=== PATIENT | male | born 1995 | race Caucasian/White ===

== ENCOUNTER 2017-01-29 14:39 | Emergency (ER) | payer OTHER ==
[2017-01-29 14:48] VITALS: BP 150/80; PULSE 73; TEMP 98.1; BMI 29.9
--- NOTE | 2017-01-29 16:45 | PDOC ---
History of Present Illness - General Chief Complaint: Urinary Problem Stated Complaint: BLADDER PAIN Time Seen by Provider: 01/29/17 16:07 History Source: Patient Exam Limitations: No Limitations - History of Present Illness Initial Comments: 01/29/17 16:32 Patient is a 21-year-old otherwise healthy male, uncircumcised, presents with urinary difficulty since Wednesday. Patient states that on Wednesday he went to the movies and had to urinate extremely bad however he held his urine until the end of the movie. After the movie he went to the bathroom and urinated a lot. Since he's had urinary retention, no frequency, no dysuria. Went to urgent care where they stated specimen contained blood told him to come to emergency department. No back pain. He also reports that he has not had normal morning erection since discomfort started. Past Medical History: Denies. Allergies: No known allergies Medications: None Family History: Non-contributory Social History: Denies smoking, alcohol use, or IVDU Review of Systems GENERAL/CONSTITUTIONAL: No fever or chills. No weakness. No weight change. HEAD, EYES, EARS, NOSE AND THROAT: No change in vision. No ear pain or discharge. No sore throat. CARDIOVASCULAR: No chest pain or shortness of breath. RESPIRATORY: No cough, wheezing, or hemoptysis. GASTROINTESTINAL: No nausea, vomiting, diarrhea or constipation. No rectal bleeding. GENITOURINARY: Urinary retention, No dysuria or frequency. Reports microscopic blood in urine. MUSCULOSKELETAL: No joint or muscle swelling or pain. No neck or back pain. SKIN : No rash or easy bruising. NEUROLOGIC: No headache, vertigo, loss of consciousness, or loss of sensation. PSYCHIATRIC: No depression or anxiety. ENDOCRINE: No increased thirst. No abnormal weight change. HEMATOLOGIC/LYMPHATIC: No anemia, easy bleeding, or history of blood clots. ALLERGIC/IMMUNOLOGIC: No hives or skin allergy. No latex allergy. Physical Exam: GENERAL: The patient is awake, alert, and fully oriented, in no acute distress. EYES: Pupils equal, round and reactive to light, extraocular movements intact, sclera anicteric, conjunctiva clear. ENT: Ears normal, nares patent, oropharynx clear without exudates. Moist mucous membranes. No uvula deviation NECK: Normal range of motion, supple without lymphadenopathy, JVD, or masses. LUNGS: Breath sounds equal, clear to auscultation bilaterally. No wheezes, and no crackles. HEART: Regular rate and rhythm, normal S1 and S2 without murmur, rub or gallop. ABDOMEN: Soft, nontender, normoactive bowel sounds. No guarding, no rebound. No masses. No bruising or abrasions MUSCULOSKELETAL: Normal range of motion, no edema. No clubbing or cyanosis. No cords, erythema, or tenderness. No CVA Tenderness with fist palpation . NEUROLOGICAL: Cranial nerves II through XII grossly intact. Normal speech, normal gait. SKIN: Warm, Dry, normal turgor, no rashes or lesions noted. Past History - Past Medical History Allergies/Adverse Reactions: Allergies Allergy/AdvReac Type Severity Reaction Status Date / Time No Known Allergies Allergy Verified 01/29/17 14:44 Home Medications: Ambulatory Orders Doxycycline Hyclate 100 mg PO BID #14 capsule 01/29/17 Tamsulosin HCl [Flomax] 0.4 mg PO DAILY #15 capsule 01/29/17 Liver Disease: Yes (FATTY LIVER.) - Immunization History Immunization Up to Date: Yes - Psycho/Social/Smoking Cessation Hx Anxiety: No Suicidal Ideation: No Smoking History: Never smoked Have you smoked in the past 12 months: No Information on smoking cessation initiated: No Hx Alcohol Use: No Drug/Substance Use Hx: No Substance Use Type: None *Physical Exam - Vital Signs Last Vital Signs Temp Pulse Resp BP Pulse Ox 98.1 F 73 18 150/80 100 01/29/17 14:45 01/29/17 14:45 01/29/17 14:45 01/29/17 14:45 01/29/17 14:45 Medical Decision Making - Medical Decision Making 01/29/17 16:45 A/P : Patient was sent from urgent care for evaluation of microscopic blood in the urine. Patient denies any recent sexual activity, 01/29/17 17:39 Dr. Tsai called for consult. 01/29/17 17:46 Laboratory Tests 01/29/17 01/29/17 16:10 16:10 Urine Color Straw Urine Appearance Clear Urine pH 7.0 Ur Specific [place] Pending Urine Protein Negative Urine Glucose (UA) Negative Urine Ketones Negative Urine Blood Negative Urine Nitrite Negative Urine Bilirubin Negative Urine Urobilinogen Negative Ur Leukocyte Esterase Negative C.trachomatis Ampl DNA Pending N. gonorrhoeae (EMMA) Pending Spoke to Pau Da Silva, requesting post flow ultrasound to check for residuals. Recommend alpha alva, Flomax Patient with no dysuria, questionable passing of renal stone. 01/29/17 19:07 US with small post void residual. Dr Tsai paged again to discuss. 01/29/17 19:52 Patient to be discharged on doxycycline, Flomax, follow-up with urology within a week. Call within a week for results of GC chlamydia I discussed the physical exam findings, ancillary test results and final diagnoses with the patient. I answered all of the patient's questions. The patient was satisfied with the care received and felt comfortable with the discharge plan and treatment plan. The patient will call to arrange follow-up and will return to the Emergency Department with any new, persistent or worsening symptoms. *DC/Admit/Observation/Transfer Diagnosis at time of Disposition: Urinary retention - Discharge Dispostion Disposition: HOME Condition at time of disposition: Good Admit: No - Prescriptions Prescriptions: Doxycycline Hyclate 100 mg PO BID #14 capsule Tamsulosin HCl [Flomax] 0.4 mg PO DAILY #15 capsule - Referrals Referrals: Luis Antonio Pop MD [Staff Physician] - - Patient Instructions Additional Instructions: PLease follow up with urology within one week. If any pain, bleeding, or any other concerns return to ER - Post Discharge Activity Work/School Note: Back to Work
[2017-01-29 17:12] LABS: URINE APPEARANCE CLEAR; URINE BILIRUBIN NEGATIVE (NEGATIVE); URINE BLOOD NEGATIVE (NEGATIVE); URINE COLOR STRAW; URINE GLUCOSE (UA) NEGATIVE (NEGATIVE); URINE KETONE NEGATIVE (NEGATIVE); URINE LEUK ESTERASE NEGATIVE (NEGATIVE); URINE NITRITE NEGATIVE (NEGATIVE); URINE PROTEIN NEGATIVE (NEGATIVE); URINE UROBILINOGEN NEGATIVE E.U./dl (0.2-1.0)
== END 2017-01-29 19:52 | disposition home or self-care (01) ==
LOC: JERFT 14:39
DX: R33.8 Other retention of urine (principal)
CPT/HCPCS: 36415; 76856-TC; 81003; 87086; 87491; 87591; 99281-25

== ENCOUNTER 2017-03-10 15:18 | Emergency (ER) | payer OTHER ==
[2017-03-10 15:32] VITALS: BP 148/77; PULSE 88; TEMP 99.2; BMI 30.7
--- NOTE | 2017-03-10 17:49 | PDOC ---
History of Present Illness - General Chief Complaint: Headache Stated Complaint: HEADACHES, RT HAND BRUISE Time Seen by Provider: 03/10/17 16:26 History Source: Patient Exam Limitations: No Limitations - History of Present Illness Initial Comments: 03/10/17 17:33 CHIEF COMPLAINT: Patient with right hand injury also states that he was was playing baseball and was lightly hit on the head after sliding into base, since with "foggy feeling". HISTORY OF PRESENT ILLNESS: Patient is an otherwise healthy 21-year-old male who presents to the emergency department with injury to right hand, bruising to webbing between the first and second fingers with edema, occurred while playing baseball. Patient states also he was sliding into base and was to had but does not remember being hit in the head did have a helmet on however has since been feeling lightheaded, "just feeling foggy". Patient denies any LOC, no nausea vomiting, no unsteady gait, no visual disturbance. Has been taking Advil for pain. PMH: None MEDS: None ALLERGIES: None REVIEW OF SYSTEMS: GENERAL/CONSTITUTIONAL: Awake alert and oriented HEAD, EYES, EARS, NOSE AND THROAT: No change in vision. No facial edema, no bruising. NO active bleeding. Nares intact. RESPIRATORY: No cough, wheezing, or hemoptysis. CARDIAC: Denies chest pain, no shortness of breathe. MUSCULOSKELETAL: No spinal point tenderness, Good ROM to all four extremities. Bruising between the webbing of the first and second fingers, positive snuffbox pain. NO CVA tenderness. No lateral neck pain. GI/: Denies abdominal pain, no nausea or vomiting, no bloody stool, no Hematuria. SKIN : Edema and erythema to right hand between the first and second fingers. NEUROLOGIC: No loss of consciousness, no numbness or tingling. PHYSICAL EXAM: GENERAL: Awake and alert and oriented x3. EYES: The pupils are equal, round, and reactive to light, with clear, conjunctiva. Good extraocular movement. No nystagmus NOSE: No nasal trauma . Midface stable MOUTH: Teeth intact. EARS: The ear canals and tympanic membranes are normal without trauma. No drainage. NECK: No Lower cervical C-spine tenderness, no pain with chin to chest. CHEST: The lungs are clear without crackles, or wheezes. No subcutaneous emphysema. No crepitus. HEART: Heart is regular rhythm, with normal S1 and S2, no murmurs. ABDOMEN: The abdomen is soft and nontender with normal bowel sounds. There is no guarding or rebound. MUSCULOSKELETAL: No spinal point tenderness. No bruising or erythema. Pelvis stable. EXTREMITIES: Extremities are normal. No visible traumatic injury. NEUROLOGICAL:Mental status: The patient is oriented x3. No Generalized headache , Romberg - Cranial nerves: Cranial nerves II through XII are intact Motor: The upper extremities are 5 over 5 in all muscle groups. The lower extremities are 5 over 5 in all muscle groups. Sensation: Sensation is intact to light touch throughout. Cerebellar: Wothyc-erdrhm-vjli is normal in both upper extremities. Heel-knee- garcias is normal in both lower extremities. Reflexes: 2+ and symmetric in the upper and lower extremities. Gait: Normal. Heel and toe walking are normal. Tandem gait is normal. SKIN: Edema, bruising and erythema to right hand between the first and second fingers. Past History - Past Medical History Allergies/Adverse Reactions: Allergies Allergy/AdvReac Type Severity Reaction Status Date / Time No Known Allergies Allergy Verified 03/10/17 15:32 Home Medications: Ambulatory Orders Omeprazole 20 mg PO DAILY 03/10/17 Liver Disease: Yes (FATTY LIVER.) - Immunization History Immunization Up to Date: Yes - Psycho/Social/Smoking Cessation Hx Anxiety: No Suicidal Ideation: No Smoking History: Never smoked Have you smoked in the past 12 months: No Hx Alcohol Use: No Drug/Substance Use Hx: No Substance Use Type: None *Physical Exam - Vital Signs Last Vital Signs Temp Pulse Resp BP Pulse Ox 99.2 F 88 16 148/77 97 03/10/17 15:29 03/10/17 15:29 03/10/17 15:29 03/10/17 15:29 03/10/17 15:29 ED Treatment Course - RADIOLOGY Radiology Studies Ordered: Category Date Time Status HEAD CT WITHOUT CONTRAST [CT] Stat CT Scan 03/10/17 16:35 Completed HAND- RIGHT [RAD] Stat Radiology 03/10/17 16:34 Ordered Medical Decision Making - Medical Decision Making 03/10/17 17:37 A/P: Patient here for evaluation of right hand injury also states that he has pain to the head, just not feeling right, is requesting head CT although based upon patient's clinical presentation and median head CT rules, patient does not require head CT although he is requesting one. Patient is made aware that exposure to excessive radiation mainly to cancer he is aware of these risks and is still requesting head CT. 03/10/17 17:[address] is negative for acute intracranial pathology, awaiting x-ray of hand. Xary of hand is negative for acute fracture, see patient home, Motrin for pain, or any other concerns. I discussed the physical exam findings, ancillary test results and final diagnoses with the patient. I answered all of the patient's questions. The patient was satisfied with the care received and felt comfortable with the discharge plan and treatment plan. The patient will call to arrange follow-up and will return to the Emergency Department with any new, persistent or worsening symptoms. *DC/Admit/Observation/Transfer Diagnosis at time of Disposition: Dizziness Contusion, hand Qualifiers: Encounter type: initial encounter Laterality: right Qualified Code(s): S60.221A - Contusion of right hand, initial encounter - Discharge Dispostion Disposition: HOME Condition at time of disposition: Good Admit: No - Referrals Referrals: Avila Bowers MD [Primary Care Provider] - - Patient Instructions Additional Instructions: Motrin for pain Recommend follow-up with orthopedics in one week if pain persists If any increased headache, nausea vomiting, unsteady gait, visual disturbance, or any other concerns return to ER Increase fluid intake. - Post Discharge Activity Work/School Note: Back to Work
== END 2017-03-10 18:57 | disposition home or self-care (01) ==
LOC: JERFT 15:18
DX: S60.221A Contusion of right hand, initial encounter (principal); R42 Dizziness and giddiness; K76.0 Fatty (change of) liver, not elsewhere classified; W21.9XXA Striking against or struck by unspecified sports equipment, initial encounter; Y93.64 Activity, baseball; Y92.320 Baseball field as the place of occurrence of the external cause
CPT/HCPCS: 70450-TC; 73130-TC-RT; 99281-25

== ENCOUNTER 2017-06-17 06:18 | Day surgery (SDC) | payer OTHER ==
[2017-06-16 11:13] VITALS: BMI 30.7
[2017-06-17] MEDS ORDERED: MIDAZOLAM HCL 2 MG/2 ML SINGLE DOSE VIAL ONE (07:17)
--- NOTE | 2017-06-17 07:37 | HP ---
History & Physical Update - History History: No Change - Physical Physical: No Change - Assessment Assessment: No Change - Plan Plan: No Change
[2017-06-17] MEDS ORDERED: PROPOFOL 20 ML ONE ×3 (07:42)
[2017-06-17] MEDS ORDERED: ceFAZolin SODIUM 1 GM VIAL IVPB ONE (07:45)
[2017-06-17] MEDS ORDERED: BUPIVACAINE HCL/PF 0.5% (5MG/ML) 10 ML VIAL IJ ONE (08:00)
[2017-06-17] MEDS ORDERED: oxyCODONE HCL 5 MG TABLET PO PRN ×2 (08:22→08:34)
--- NOTE | 2017-06-17 08:25 | OP ---
Operative Note - Note: Operative Date: 06/17/17 Pre-Operative Diagnosis: phimosis Operation: circumcision Findings: phimosis Post-Operative Diagnosis: Same as Pre-op Surgeon: Luis Antonio Pop Anesthesia: General Specimens Removed: foreskin Operative Report Dictated: Yes
[2017-06-17] MEDS ORDERED: DEXTROSE 5%-0.45% SALINE 1,000 ML IV SCH (08:30)
[2017-06-17] MEDS ORDERED: PROMETHAZINE HCL 25 MG/1 ML VIAL IVPUSH PRN (08:34)
[2017-06-17] MEDS ORDERED: ONDANSETRON 4 MG/2 ML VIAL IVPUSH PRN (08:34)
[2017-06-17] MEDS ORDERED: LACTATED RINGERS SOLUTION 1,000 ML IV SCH (08:45)
--- NOTE | 2017-06-17 09:28 | OP ---
DATE OF OPERATION: 06/17/2017 PREOPERATIVE DIAGNOSIS: Phimosis. POSTOPERATIVE DIAGNOSIS: Phimosis. PROCEDURE: Circumcision. SURGEON: Luis Antonio Pop MD INDICATIONS: Patient is a 21-year-old male with phimotic foreskin and recurrent balanitis who elected to undergo circumcision. Risks, benefits, and alternatives were discussed including potential risk of dissatisfaction with appearance, pain, and increased or decreased sensitivity with sexual activity. DESCRIPTION OF PROCEDURE: After informed consent was obtained, patient was taken to the OR and placed supine on the operating table. After cardiac monitoring was administered, general anesthesia was established. The penis was prepped and draped in standard surgical fashion. A ring block with 1% Marcaine was created using 20 mL. At this point, with the foreskin in its normal anatomic position, a circumferential incision was created at the level of the coronal sulcus. The foreskin was then retracted, and a second circumferential incision was created approximately 2 cm proximal to the coronal sulcus. This sleeve of tissue foreskin was then excised in its entirety using sharp and blunt dissection and sent to Pathology for analysis. The oblique sides were then cauterized. Then, the proximal foreskin was sewn to the distal skirt of foreskin circumferentially using interrupted 3-0 chromic sutures until the foreskin was completely reanastomosed. There was no evidence of any active bleeding. A dry sterile dressing was then placed, and patient was awoken from anesthesia and transferred to the recovery room in stable condition. There were no complications. Estimated blood loss was minimal. Pau [id number]
[2017-06-17 10:37] VITALS: TEMP 98.1
[2017-06-17 10:52] VITALS: BP 135/84; PULSE 91
--- NOTE | 2017-06-18 11:25 | PATH ---
Surgical Pathology Report Patient Name: JADIEL GUNDERSON [facility]. Rec. #: [id number] /Age/Gender: 1995 (Age: 21) / M Account: [id number] Location: [facility] SURGICAL Taken: 06/17/2017 Received: 06/17/2017 Reported: 06/18/2017 Physicians: Luis Antonio Pop M.D. Specimen(s) Received CIRCUMCISION FORESKIN Clinical History Phimosis Final Diagnosis FORESKIN, CIRCUMCISION: FORESKIN WITH MILD DERMAL CHRONIC INFLAMMATION CONSISTENT WITH PHIMOSIS. CHANGES CONSISTENT WITH BALANITIS XEROTICA OBLITERANS ARE NOT IDENTIFIED. NO DYSPLASIA IDENTIFIED. Electronically Signed Abdiaziz Felipe M.D. Gross Description Received in formalin labeled "foreskin," is a 7.0 x 1.8 x 0.5 cm portion of martin-brown, wrinkled skin, consistent with foreskin. No discrete epidermal lesions are identified. Disk Sander sections are submitted in one cassette. 06/17/201706/17/2017
== END 2017-06-17 10:55 | disposition home or self-care (01) ==
LOC: JASU-SURG 06:18
PROVIDERS: ATTEND Urology
PROC: 0VTTXZZ Resection of Prepuce, External Approach (ICD-10-PCS; principal; 2017-06-17 07:30)
DX: N47.1 Phimosis (principal)
CPT/HCPCS: 88304-TC; 94760

== ENCOUNTER 2017-07-04 13:13 | Emergency (ER) | payer OTHER ==
[2017-07-04 13:31] VITALS: TEMP 98.2; BMI 30.7
[2017-07-04 14:42] LABS: URINE APPEARANCE CLEAR; URINE BILIRUBIN NEGATIVE (NEGATIVE); URINE BLOOD NEGATIVE (NEGATIVE); URINE COLOR LTYELLOW; URINE GLUCOSE (UA) NEGATIVE (NEGATIVE); URINE KETONE NEGATIVE (NEGATIVE); URINE NITRITE NEGATIVE (NEGATIVE); URINE PROTEIN NEGATIVE (NEGATIVE); URINE UROBILINOGEN NEGATIVE mg/dL (0.2-1.0)
--- NOTE | 2017-07-04 15:18 | PDOC ---
*Physical Exam - Vital Signs Last Vital Signs Temp Pulse Resp BP Pulse Ox 98.2 F 96 H 15 144/81 99 07/04/17 13:29 07/04/17 13:29 07/04/17 13:29 07/04/17 13:29 07/04/17 13:29 ED Treatment Course - LABORATORY CBC & Chemistry Diagram: 07/04/17 14:52 07/04/17 14:52 - ADDITIONAL ORDERS Additional order review: Laboratory Results 07/04/17 14:32 Urine Color Ltyellow Urine Appearance Clear Urine pH 6.0 Ur Specific [place] 1.018 Urine Protein Negative Urine Glucose (UA) Negative Urine Ketones Negative Urine Blood Negative Urine Nitrite Negative Urine Bilirubin Negative Urine Urobilinogen Negative Medical Decision Making - Medical Decision Making 07/04/17 16:08 Pt seen by the Advanced Practice Provider under my direct supervision Ancillary studies reviewed I agree with plan as outlined by the Advanced Practice Provider *DC/Admit/Observation/Transfer - Referrals Referrals: Avila Bowers MD [Primary Care Provider] - - Patient Instructions - Post Discharge Activity
[2017-07-04 15:35] LABS: BASOPHIL 0.4 % (0-2.0); EOSINOPHIL 1.2 % (0-4.5); MCH 29.9 pg (25.7-33.7); MCHC 35.1 g/dl (32.0-35.9); MEAN CELL VOLUME 85.1 fl (80-96); MEAN PLT VOLUME 7.7 fl (7.5-11.1); NEUTROPHILS 79.3 % (42.8-82.8); PLATELET COUNT 233 K/MM3 (134-434); WHITE BLOOD COUNT 7.7 K/mm3 (4.0-10.0)
--- NOTE | 2017-07-04 16:09 | PDOC ---
History of Present Illness - General Chief Complaint: Pain, Acute Stated Complaint: ABD PAIN Time Seen by Provider: 07/04/17 14:33 History Source: Patient Exam Limitations: No Limitations - History of Present Illness Initial Comments: 07/04/17 15:53 Patient is a 21-year-old male, circumcised on 06/17/2017 with no complication, 5 days after was pushing a piece of furniture in his house and developed right lower quadrant pain. Saw Dr. Da Silva for post op visit and was told it was musculoskeletal. was told to take advil. Pain went away for 2-3 days then started today with right lower quadrant and right inguinal and testicular pain. Patient reports developing bruising to mid line of scrotum after surgery which still persists. Denies urinary pain or frequency. No penile discharge. No N/.V/D. No fever. No hematuria. No erythema, edema or evidence of infection to penile head. Past Medical History: [Denies medical, circumcision on 06/17/2017. Allergies: No known allergies Medications: [Vitamin E , MVI] Family History: Non-contributory Social History: Denies smoking, alcohol use, or IVDU Vital signs on arrival are [notable for pulse of 96.] Review of Systems GENERAL/CONSTITUTIONAL: [No fever or chills. No weakness. No weight change.] HEAD, EYES, EARS, NOSE AND THROAT: [No change in vision. No ear pain or discharge. No sore throat. ] CARDIOVASCULAR: [No chest pain or shortness of breath.] RESPIRATORY: [No cough, wheezing, or hemoptysis.] GASTROINTESTINAL: [No nausea, vomiting, diarrhea or constipation. No rectal bleeding. Right Lower quadrant pain and right inguinal pain] GENITOURINARY: [No dysuria, frequency, or change in urination. Right testicular pain] MUSCULOSKELETAL: [No joint or muscle swelling or pain. No neck or back pain.] SKIN : [No rash or easy bruising.] NEUROLOGIC: [No headache, vertigo, loss of consciousness, or loss of sensation.] PSYCHIATRIC: [No depression or anxiety.] ENDOCRINE: [No increased thirst. No abnormal weight change.] HEMATOLOGIC/LYMPHATIC: [No anemia, easy bleeding, or history of blood clots.] ALLERGIC/IMMUNOLOGIC: [No hives or skin allergy. No latex allergy.] Physical Exam: GENERAL: [The patient is awake, alert, and fully oriented, in no acute distress. ] EYES: [Pupils equal, round and reactive to light, extraocular movements intact, sclera anicteric, conjunctiva clear.] ENT: [Ears normal, nares patent, oropharynx clear without exudates. Moist mucous membranes. No uvula deviation] NECK: [Normal range of motion, supple without lymphadenopathy, JVD, or masses.] LUNGS: [Breath sounds equal, clear to auscultation bilaterally. No wheezes, and no crackles.] HEART: [Regular rate and rhythm, normal S1 and S2 without murmur, rub or gallop. ] ABDOMEN: [Soft, tenderness or guarding or rebound on palpation, patient reports dull pain to right lower quadrant and right inguinal area, inguinal area without mass or fluctuance. Normoactive bowel sounds. No masses. No bruising or abrasions] GENITALIA: Testicles without edema, there is bruising midline between testicles which is healing, no epididymal pain, good cremasteric reflex without testicular deformity. RECTAL : [Guaiac negative, normal rectal tone.] MUSCULOSKELETAL: [Normal range of motion, no edema. No clubbing or cyanosis. No cords, erythema, or tenderness. No CVA Tenderness with fist.] NEUROLOGICAL: [Cranial nerves II through XII grossly intact. Normal speech, normal gait.] SKIN: [Warm, Dry, normal turgor, no rashes or lesions noted.] Past History - Past Medical History Allergies/Adverse Reactions: Allergies Allergy/AdvReac Type Severity Reaction Status Date / Time No Known Allergies Allergy Verified 07/04/17 13:28 Home Medications: Ambulatory Orders Acetaminophen [Tylenol] 650 mg PO PRN PRN 06/16/17 Multivitamin [One Daily] 1 each PO DAILY 06/16/17 Vitamin E (Dl,Tocopheryl Acet) [Vitamin E] 400 unit PO BID 06/16/17 Anemia: No Asthma: No Cancer: No Cardiac Disorders: No CVA: No COPD: No CHF: No DVT: No Dementia: No Diabetes: No GI Disorders: Yes (ACID REFLUX) Disorders: No HTN: No Hypercholesterolemia: No Liver Disease: (FATTY LIVER) Seizures: No Thyroid Disease: No - Immunization History Immunization Up to Date: Yes - Suicide/Smoking/Psychosocial Hx Smoking History: Never smoked Have you smoked in the past 12 months: No Information on smoking cessation initiated: No Hx Alcohol Use: No Drug/Substance Use Hx: No Substance Use Type: None Hx Substance Use Treatment: No *Physical Exam - Vital Signs Last Vital Signs Temp Pulse Resp BP Pulse Ox 98.2 F 96 H 15 144/81 99 07/04/17 13:29 07/04/17 13:29 07/04/17 13:29 07/04/17 13:29 07/04/17 13:29 ED Treatment Course - LABORATORY CBC & Chemistry Diagram: 07/04/17 14:52 07/04/17 14:52 - ADDITIONAL ORDERS Additional order review: Laboratory Results 07/04/17 14:32 Urine Color Ltyellow Urine Appearance Clear Urine pH 6.0 Ur Specific [place] 1.018 Urine Protein Negative Urine Glucose (UA) Negative Urine Ketones Negative Urine Blood Negative Urine Nitrite Negative Urine Bilirubin Negative Urine Urobilinogen Negative 07/04/17 14:52 RBC 5.29 MCV 85.1 MCHC 35.1 RDW 13.0 MPV 7.7 Neutrophils % 79.3 Lymphocytes % 11.6 Monocytes % 7.5 Eosinophils % 1.2 Basophils % 0.4 - RADIOLOGY Radiology Studies Ordered: Category Date Time Status ABDOMEN & PELVIS CT WITH CONTR [CT] Stat CT Scan 07/04/17 15:18 Ordered Medical Decision Making - Medical Decision Making 07/04/17 16:19 A/P: Patient here for evaluation of right testicular, right lower quadrant and right inguinal pain status post circumcision on 06/17/2017. 07/04/17 17:44 Laboratory Results - last 24 hr 07/04/17 07/04/17 07/04/17 14:32 14:52 14:52 WBC 7.7 RBC 5.29 Hgb 15.8 Hct 45.0 MCV 85.1 MCH 29.9 MCHC 35.1 RDW 13.0 Plt Count 233 MPV 7.7 Neutrophils % 79.3 Lymphocytes % 11.6 Monocytes % 7.5 Eosinophils % 1.2 Basophils % 0.4 Sodium 140 Potassium 4.0 Chloride 102 Carbon Dioxide 28 Anion Gap 10 BUN 13 Creatinine 1.0 Creat Clearance w eGFR > 60 Random Glucose 82 Calcium 9.2 Total Bilirubin 0.4 AST 28 ALT 65 Alkaline Phosphatase 62 Total Protein 7.5 Albumin 4.7 Urine Color Ltyellow Urine Appearance Clear Urine pH 6.0 Ur Specific [place] 1.018 Urine Protein Negative Urine Glucose (UA) Negative Urine Ketones Negative Urine Blood Negative Urine Nitrite Negative Urine Bilirubin Negative Urine Urobilinogen Negative CBC reveals no anemia, leukocytosis, bandemia, lymphocytosis, or neutrophilia. Platelets are within normal values at this time. CMP reveals no electrolyte imbalance, there is no transaminitis, renal function is normal, there is no hyperbilirubinemia. Urinalysis reveals no urinary tract infection. Testicular ultrasound with no torsion or evidence of acute pathology. CT pending 07/04/17 19:00 CT demonstrated no evidence of small bowel obstruction or mass, normal appendix , hepatic steatosis with an incidental note is made of a 2. no hyperenhancing lesion in the medial segment of the left hepatic lobe likely benign vascular lesion. I have called Dr. Da Silva to discuss patient case, pain is most likely musculoskeletal in nature. I Have discussed the results with the patient , he verbalizes understanding not to lift anything greater than 10 pounds, Motrin or Advil for pain. 07/04/17 19:[address] Erazo, agrees with assessment most likely musculoskeletal in nature to RI patient home on Motrin follow-up in office or Dr. Maya. I discussed the physical exam findings, ancillary test results and final diagnoses with the patient. I answered all of the patient's questions. The patient was satisfied with the care received and felt comfortable with the discharge plan and treatment plan. The patient will call to arrange follow-up and will return to the Emergency Department with any new, persistent or worsening symptoms. 07/04/17 19:26 *DC/Admit/Observation/Transfer Diagnosis at time of Disposition: Musculoskeletal pain Abdominal pain Qualifiers: Abdominal location: right lower quadrant Qualified Code(s): R10.31 - Right lower quadrant pain - Discharge Dispostion Disposition: HOME Condition at time of disposition: Stable Admit: No - Referrals Referrals: Avila Bowers MD [Primary Care Provider] - Luis Antonio Pop MD [Staff Physician] - () - Patient Instructions Additional Instructions: Motrin or Advil for pain, recommend follow-up this week with Dr. Da Silva No Heavy lifting greater than 10 pounds - Post Discharge Activity Forms/Work/School Notes: Back to Work
[2017-07-04 16:43] LABS: ALBUMIN 4.7 g/dl (3.4-5.0); ANION GAP 10 (8-16); BILIRUBIN,TOTAL 0.4 mg/dL (0.2-1.0); CALCIUM 9.2 mg/dL (8.5-10.1); CO2 28 mmol/L (21-32); GLUCOSE,RANDOM 82 mg/dL (74-106); SGOT/AST 28 U/L (15-37); SGPT/ALT 65 U/L (12-78); TOT PROT 7.5 g/dl (6.4-8.2)
[2017-07-04 16:44] LABS: ALK PHOS 62 U/L (45-117)
[2017-07-04 19:32] VITALS: BP 125/69; PULSE 88
[2017-07-04 20:16] LABS: URINE LEUK ESTERASE Negative (NEGATIVE)
== END 2017-07-04 19:32 | disposition home or self-care (01) ==
LOC: JER 13:13
DX: R10.31 Right lower quadrant pain (principal); X50.0XXA Overexertion from strenuous movement or load, initial encounter; Y93.89 Activity, other specified; Y92.038 Other place in apartment as the place of occurrence of the external cause
CPT/HCPCS: 36415; 74177-TC; 76870-TC; 80053; 81003; 85025; 87086; 87491; 87591; 99283-25